=== PATIENT | female | born 1985 | race Caucasian/White ===

== ENCOUNTER 2020-03-01 08:19 | Inpatient (IN) ==
[2020-03-01] MEDS ORDERED: Lactated Ringers 1000 ml BAG 1,000 ML IV ONE (08:21)
[2020-03-01] MEDS ORDERED: Lactated Ringers 1000 ml BAG 1,000 ML IV SCH ×2 (09:00→22:00)
[2020-03-01 10:05] LABS: ABS Eosinophils 0.1 10^3/ul (0-0.6); ABS Lymphocytes 1.8 10^3/ul (1.0-4.8); ABS Monocytes 0.5 10^3/ul (0-0.8); ABS Neutrophils 6.1 10^3/ul (1.5-7.7); Eosinophil % 0.7 %; Hematocrit 36 % (35-47); Hemoglobin 12.6 g/dL (12.0-16.0); Lymphocyte % 21.5 %; Mean Corpuscular HGB Conc 35 g/dL (31-36); Mean Corpuscular Hemoglobin 31 pg (27-31); Mean Corpuscular Volume 89 fL (80-97); Mean Platelet Volume 8.5 fL (7.4-10.4); Platelet Count 185 10^3/uL (150-450); Red Blood Count 4.09 10^6 /uL (3.70-4.87); Red Cell Distribution Width 13 % (10-15); White Blood Count 8.6 10^3/uL (3.5-10.8)
[2020-03-01 10:08] LABS: Urine Appearance Cloudy; Urine Bilirubin Negative (Negative); Urine Blood Negative (Negative); Urine Color Yellow; Urine Glucose Negative (Negative); Urine Ketones Negative (Negative); Urine Nitrite Negative (Negative); Urine Protein Negative (Negative); Urine Specific Gravity 1.016 (1.010-1.030); Urine Urobilinogen Negative (Negative)
[2020-03-01 10:09] LABS: Urine Bacteria 1+ (Absent); Urine Red Blood Cell Trace(0-2/hpf) (Absent); Urine Squamous Epithelial Cell Present (Absent); Urine White Blood Cell 1+(6-10/hpf) (Absent)
[2020-03-01 10:22] LABS: Albumin 3.4 g/dL (3.2-5.2); Albumin/Globulin Ratio 1.2 (1-3); BUN/Creatinine Ratio 15.1 (8-20); EGFR African American 160.8 (>60); EGFR Non-African American 132.9 (>60); Globulin 2.9 g/dL (2-4); Potassium 3.9 mmol/L (3.5-5.0); Total Bilirubin 0.5 mg/dL (0.2-1.0); Total Protein 6.3 g/dL (6.4-8.9); Uric Acid 4.5 mg/dL (2.3-6.6)
[2020-03-01 10:32] LABS: Urine Benzodiazepine Screen None Detected (None Detect); Urine Cannabinoids Screen None Detected (None Detect); Urine Opiates Screen None Detected (None Detect)
[2020-03-01] MEDS ORDERED: Oxytocin in LR 20 UNITS/1,000 ML BAG IVPB SCH ×2 (14:15→22:00)
[2020-03-01] MEDS ORDERED: OBEPIDURAL 250 ML EPIDURAL ONE (15:47)
[2020-03-01] MEDS: Lactated Ringers 1000 ml BAG 1,000 ML IV SCH ×2 (16:20→16:46)
[2020-03-01] MEDS ORDERED: Phenylephrine 40 mcg/mL 10mL (400mcg) SYRINGE IV PUSH PRN (17:08)
[2020-03-01] MEDS ORDERED: Sodium Citrate/Citric Acid LIQ 15 ML UDC PO PRN (17:08)
[2020-03-01] MEDS ORDERED: OBEPIDURAL 250 ML EPIDURAL SCH (18:00)
[2020-03-01] MEDS: Witch Hazel PAD JAR TOPICAL PRN (22:14)
[2020-03-01] MEDS: Dibucaine 1% OINT 28.35 GM TUBE PR PRN (22:14)
[2020-03-02] MEDS ORDERED: Lidocaine 1% VIAL 10 MG/ML VIAL ONE (00:49)
[2020-03-02 08:48] LABS: ABS Basophils 0.1 10^3/ul (0-0.2); ABS Eosinophils 0.1 10^3/ul (0-0.6); ABS Lymphocytes 1.8 10^3/ul (1.0-4.8); ABS Monocytes 0.7 10^3/ul (0-0.8); ABS Neutrophils 9.4 10^3/ul (1.5-7.7); Eosinophil % 0.4 %; Hematocrit 36 % (35-47); Hemoglobin 12.7 g/dL (12.0-16.0); Mean Corpuscular HGB Conc 35 g/dL (31-36); Mean Corpuscular Hemoglobin 31 pg (27-31); Mean Corpuscular Volume 89 fL (80-97); Mean Platelet Volume 8.5 fL (7.4-10.4); Platelet Count 173 10^3/uL (150-450); Red Blood Count 4.08 10^6 /uL (3.70-4.87); Red Cell Distribution Width 13 % (10-15)
[2020-03-02] MEDS: Dibucaine 1% OINT 28.35 GM TUBE PR PRN (20:27)
[2020-03-02] MEDS: Witch Hazel PAD JAR TOPICAL PRN (20:27)
[2020-03-03 09:46] VITALS: BP 126/86
== END 2020-03-03 13:47 | disposition home or self-care (01) | DRG 807 ==
LOC: MCHOBOUT 08:19 → MCHOB 08:41
PROVIDERS: ADMIT Midwife; ATTEND Midwife

== ENCOUNTER 2022-10-23 19:16 | Inpatient (IN) ==
[2022-10-23] MEDS ORDERED: Lactated Ringers 1000 ml BAG 1,000 ML IV ONE (19:43)
[2022-10-23] MEDS ORDERED: Buffered Lidocaine 1% SYRIN 1 ml INTRADERM ONE (19:43)
[2022-10-23] MEDS ORDERED: Promethazine INJ(RESTRICTED) 25 MG/ML 1 ml VIAL IV PRN (19:43)
[2022-10-23] MEDS ORDERED: Nalbuphine 10 MG/ML 1 ML VIAL IV PRN (19:43)
[2022-10-23] MEDS ORDERED: Dinoprostone 10 MG VAG.SUPP VAGINAL ONE (19:48)
[2022-10-23 20:23] LABS: Urine Appearance Clear; Urine Bilirubin Negative (Negative); Urine Blood Negative (Negative); Urine Color Straw; Urine Glucose Negative (Negative); Urine Ketones Negative (Negative); Urine Nitrite Negative (Negative); Urine Protein Negative (Negative); Urine Specific Gravity 1.015 (1.002-1.030); Urine Urobilinogen Negative (Negative)
[2022-10-23 20:33] LABS: Urine Benzodiazepine Screen None Detected (None Detect); Urine Cannabinoids Screen None Detected (None Detect); Urine Opiates Screen None Detected (None Detect)
[2022-10-23 20:33] LABS: ABS Eosinophils 0.1 10^3/uL (0.0-0.5); ABS Lymphocytes 2.3 10^3/uL (1.0-4.8); ABS Monocytes 0.7 10^3/uL (0.0-0.9); ABS Neutrophils 4.6 10^3/uL (1.5-7.6); Eosinophil % 1.4 %; Hematocrit 32.6 % (35-45); Lymphocyte % 30.2 %; Mean Corpuscular Hemoglobin 28.6 pg (27-33); Mean Corpuscular Hgb Conc 33.7 g/dL (31-36); Mean Corpuscular Volume 85.1 fL (80-97); Mean Platelet Volume 9.3 fL (7.5-11.2); Platelet Count 184 10^3/uL (150-450); Red Blood Count 3.84 10^6/uL (3.63-4.92); Red Cell Distribution Width 13.4 % (12-17); White Blood Count 7.7 10^3/uL (3.8-11.8)
[2022-10-23 21:01] LABS: Albumin 3.2 g/dL (3.2-5.2); Albumin/Globulin Ratio 1.2 (1-3); Calcium 8.3 mg/dL (8.6-10.3); Creatinine, Serum 0.63 mg/dL (0.51-0.95); Globulin 2.6 g/dL (2-4); Potassium 4.1 mmol/L (3.5-5.0); Total Bilirubin 0.5 mg/dL (0.2-1.0); Total Protein 5.8 g/dL (6.4-8.9); eGFR CKD-EPI 118.6 (>60)
[2022-10-24] MEDS ORDERED: Albuterol HFA INHALER 8 gm MDI INH PRN (08:43)
[2022-10-24] MEDS ORDERED: Oxytocin in LR 20,000 MILLI.UNIT/1,000 ML BAG IV SCH ×2 (08:45→18:45)
[2022-10-24] MEDS: Lactated Ringers 1000 ml BAG 1,000 ML IV SCH ×2 (09:15→16:25)
[2022-10-24] MEDS ORDERED: OBEPIDURAL (200 ML) 200 ML EPIDURAL ONE (15:06)
[2022-10-24] MEDS ORDERED: Lidocaine 1% w EPI 1:200,000 SDV 30 ML VIAL ONE (15:06)
[2022-10-24 16:45] LABS: Urine Appearance Clear; Urine Bilirubin Negative (Negative); Urine Blood 2+ (Negative); Urine Color Straw; Urine Glucose Negative (Negative); Urine Ketones Negative (Negative); Urine Nitrite Negative (Negative); Urine Protein Negative (Negative); Urine Specific Gravity 1.011 (1.002-1.030); Urine Urobilinogen Negative (Negative)
[2022-10-24 17:10] LABS: Urine Bacteria Absent (Absent); Urine Red Blood Cell 3+(>10/hpf) (Absent); Urine Squamous Epithelial Cell Present (Absent); Urine White Blood Cell Trace(0-5/hpf) (Absent)
[2022-10-24] MEDS ORDERED: Tetan/Diph/Pertus SYR(Tdap) 0.5 ML SYR(BOOSTRIX) use SYR contains LATEX IM ONE (18:45)
[2022-10-24] MEDS ORDERED: Lactated Ringers 1000 ml BAG 1,000 ML IV SCH (19:00)
[2022-10-24] MEDS: Dibucaine 1% OINT 28.35 GM TUBE PR PRN (21:10)
[2022-10-24] MEDS: Witch Hazel PAD JAR TOPICAL PRN (21:10)
[2022-10-25 07:35] LABS: ABS Eosinophils 0.1 10^3/uL (0.0-0.5); ABS Lymphocytes 1.8 10^3/uL (1.0-4.8); ABS Monocytes 0.7 10^3/uL (0.0-0.9); ABS Neutrophils 5.4 10^3/uL (1.5-7.6); ABS Nucleated RBC 0.01 10^3/ul; Eosinophil % 1.7 %; Hematocrit 29.9 % (35-45); Hemoglobin 10.1 g/dL (11.5-14.3); Mean Corpuscular Hemoglobin 29.2 pg (27-33); Mean Corpuscular Hgb Conc 33.8 g/dL (31-36); Mean Corpuscular Volume 86.2 fL (80-97); Mean Platelet Volume 9.3 fL (7.5-11.2); Nucleated Red Blood Cells % 0.1 /100 WBC (0.0-0.4); Platelet Count 158 10^3/uL (150-450); Red Blood Count 3.47 10^6/uL (3.63-4.92); Red Cell Distribution Width 13.5 % (12-17)
[2022-10-25] MEDS: Witch Hazel PAD JAR TOPICAL PRN (21:06)
[2022-10-25] MEDS: Dibucaine 1% OINT 28.35 GM TUBE PR PRN (21:06)
[2022-10-26 07:41] VITALS: BP 127/78
== END 2022-10-26 13:03 | disposition home or self-care (01) | DRG 807 ==
LOC: MCHOBOUT 19:16 → MCHOB 19:23
PROVIDERS: ADMIT Advanced Practice Midwife; ATTEND Midwife